=== PATIENT | male | born 1985 | race Caucasian/White ===

== ENCOUNTER 2016-12-20 21:21 | Emergency (ER) | payer MEDICAID ==
[2016-12-20] MEDS ORDERED: HALOPERIDOL LACT 5 MG/ML INJ IV ONE (21:38)
[2016-12-20] MEDS ORDERED: LORazepam 2 MG/ML INJ IVP ONE (21:38)
[2016-12-20 21:41] VITALS: TEMP 98.2
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
[2016-12-20 21:47] LABS: % IMMATURE GRANULYOCYTES 0.3 % (0.0-1.1); ABSOLUTE IMMATURE GRANULOCYTES 0.03 10^3/uL (0.00-0.10); ADD DIFF? NO; ADD MORPH? NO; ADD SCAN? NO; ATYPICAL LYMPHOCYTE FLAG 10 (0-99); FRAGMENT RBC FLAG 0 (0-99); HEMATOCRIT 44.7 % (40.0-51.0); HEMOGLOBIN 15.1 g/dL (13.7-17.5); LEFT SHIFT FLG 0 (0-99); LIPEMIA HEMOLYSIS FLAG 90 (0-99); MEAN CELL HEMOGLOBIN 33.3 pg (27.9-34.1); MEAN CELL HEMOGLOBIN CONCENTR. 33.8 g/dL (32.4-36.7); MEAN CELL VOLUME 98.7 fL (81.5-99.8); PLATELET CLUMPS FLAG 10 (0-99); PLATELET COUNT 297 10^3/uL (150-400); RED BLOOD CELL COUNT 4.53 10^6/uL (4.40-6.38)
[2016-12-20 21:54] LABS: ANION GAP 17 mEq/L (8-16); CALCIUM 10.8 mg/dL (8.5-10.4); CARBON DIOXIDE 19 mEq/l (22-31); CHLORIDE 106 mEq/L (97-110); CREATININE 1.2 mg/dL (0.7-1.3); ETHANOL SERUM < 10 mg/dL (0-10); GLOMERULAR FILTRATION RATE > 60; GLUCOSE 76 mg/dL (70-100); POTASSIUM 4.4 mEq/L (3.5-5.2); SODIUM 142 mEq/L (134-144)
[2016-12-20 22:21] LABS: CK-MB INTERPRETATION NEGATIVE (NEGATIVE)
[2016-12-20 22:58] VITALS: RESP 16
[2016-12-21 08:29] VITALS: BP 100/78; PULSE 66; O2SAT 100
== END 2016-12-21 15:00 | disposition home or self-care (01) ==
DX: F23 Brief psychotic disorder (principal); F19.10 Other psychoactive substance abuse, uncomplicated
CPT/HCPCS: 80305; 96374; G0480; J1200; J2060